=== PATIENT | female | born 1975 | race Caucasian/White ===

== ENCOUNTER 2017-10-21 20:04 | Emergency (ER) | payer OTHER ==
[~2017-10-21] VITALS: Ht 160 cm; Wt 59.9 kg
[~2017-10-21 20:04] MED LIST: ASPIRIN325 MG PO; ATIVAN2 MG/ML IV; DULCOLAX10 MG R; DULCOLAX5 MG PO; FLAGYL I.V.500 MG IV; FLUVOXAMINE100 MG PO; HYDROCODONE BIT1 T11 PO; LUVOX100 MG PO; MOM30 M1 PO; MORPHINE2 MG/1 ML IV; PHENERGAN25 MG/ML IV; PROTONIX IV40 MG IV; RESTORIL15 MG PO; TYLENOL325 M1 PO; TYLENOL650 MG R; VIBRAMYCIN100 MG PO; ZOFRAN2 MG/ML IV
[2017-10-21] MEDS ORDERED: PROZAC10 MG PO (20:13)
[2017-10-21 20:27] LABS: BILIRUBIN NEGATIVE (NEGATIVE); BLOOD 1+ (NEGATIVE); CLARITY SL CLOUDY (CLEAR); COLOR YELLOW (YELLOW); GLUCOSE NEGATIVE (NEGATIVE); KETONE NEGATIVE (NEGATIVE); LEUKO ESTERASE 2+ (NEGATIVE); NITRITE NEGATIVE (NEGATIVE); SPECIFIC GRAVITY <= 1.005 (1.005-1.030); UROBILINOGEN 0.2 E.U./dl (0.2-1.0)
[2017-10-21 20:36] LABS: BACTERIA TRACE; EPITHELIAL CELLS 0-2; WBC 41-50 wbc/hpf (0-5)
[2017-10-22] MEDS ORDERED: PROZAC20 MG PO (10:07)
== END 2017-10-21 20:58 | disposition home or self-care (01) ==
LOC: ED 20:04
PROVIDERS: Student in an Organized Health Care Education/Training Program
DX: N39.0 Urinary tract infection, site not specified (principal); Z79.82 Long term (current) use of aspirin

== ENCOUNTER → 2017-10-22 | Day surgery (SDC) | payer OTHER ==
[~2017-10-22] VITALS: Ht 160 cm; Wt 59.9 kg
[~2017-10-22] MED LIST changes: +PROZAC10 MG PO; +PROZAC20 MG PO
--- NOTE | ~2017-10-22 | PROC NOTE ---
[place], [place] PROCEDURE NOTE NAME: TREY CARRINGTON UNIT #: [id number] ROOM: DOCTOR: JORGE PETERSON MD BIRTHDATE: [birth year] DOS: 10/22/2017 PREOPERATIVE DIAGNOSES: History of Samson syndrome, sigmoid cancer, status post sigmoid resection. POSTOPERATIVE DIAGNOSIS: Normal colon. PROCEDURE: Colonoscopy. ENDOSCOPIST: Jorge Peterson MD SQL SSRS SSIS DEVELOPER: LUISA. ANESTHESIA: MAC. 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 The procedure and its complications were explained to the patient in detail. Complications that were discussed included but were not limited to, bleeding, colon perforation, and missed lesions. She agreed to proceed. DESCRIPTION OF PROCEDURE: After identifying the patient, the patient was brought to the endoscopy suite and placed in the left lateral position. After IV sedation was administered, a timeout procedure was called and a digital rectal exam was performed. This was within normal limits. An adult colonoscope was now introduced into the anal canal and advanced sequentially into the rectum and where the anastomosis from previous sigmoid resection was identified. This was within normal limits. The scope was then advanced sequentially into the descending colon, transverse colon and ascending colon up to the cecum. Upon reaching the cecum, the scope was withdrawn. Total withdrawal time was approximately 5 minutes. There were no obvious lesions seen in the colon in its entirety. These findings were confirmed upon withdrawal. The patient was then taken to the recovery room in stable fashion. Dr. Jorge Peterson, the attending surgeon, was present throughout the operating case. Based on these findings, the patient is recommended to have another colonoscopy as a screening tool in the next 3-5 years or sooner if she develops any new symptoms. These findings will be discussed with the patient in the postoperative recovery room. [place], [place] PROCEDURE NOTE NAME: ANTONIO CARRINGTONA UNIT #: [id number] ROOM: DOCTOR: JORGE PETERSON MD BIRTHDATE: [birth year] Jorge Peterson MD CM:PROCNOTE:PROCEDURE NOTE [id number] JORGE PETERSON MD
[2017-10-22 10:00] VITALS: BP 102/50
[2017-10-22 11:32] VITALS: BP 75/31
[2017-10-22 11:45] VITALS: BP 90/54
[2017-10-22 12:00] VITALS: BP 91/53
== END | disposition home or self-care (01) ==
LOC: SDC 10-18 08:00
DX: Z08 Encounter for follow-up examination after completed treatment for malignant neoplasm (principal); Z85.038 Personal history of other malignant neoplasm of large intestine; Z84.81 Family history of carrier of genetic disease; F32.9 Major depressive disorder, single episode, unspecified; Z98.0 Intestinal bypass and anastomosis status; Z90.710 Acquired absence of both cervix and uterus; Z98.890 Other specified postprocedural states; Z79.82 Long term (current) use of aspirin; Z80.0 Family history of malignant neoplasm of digestive organs

== ENCOUNTER → 2018-05-02 | Outpatient (CLI) | payer OTHER ==
[2018-05-02 09:29] LABS: BASO % 0.9 % (0.0-1.0); EOS # 0.2 10*3/uL (0.0-0.4); EOS % 4.2 % (1.0-4.0); HEMATOCRIT 42.3 % (37.0-47.0); LYMPH # 1.3 10*3/uL (1.3-4.4); LYMPH % 28.1 % (27.0-41.0); MEAN CELL VOLUME 88.5 fl (81.0-99.0); MEAN CORPUSCULAR HGB 29.3 pg (27.0-31.0); MEAN CORPUSCULAR HGB CONC 33.1 g/dl (33.0-37.0); MEAN PLATELET VOLUME 10.2 fl (9.6-12.3); MONO # 0.4 10*3/uL (0.1-1.0); MONO % 9.1 % (3.0-9.0); NEUT # 2.6 10*3/uL (2.3-7.9); NEUT % 57.5 % (47.0-73.0); PLATELET COUNT AUTOMATED 183 10*3/uL (130-400); RED BLOOD COUNT 4.78 10*6/uL (4.10-5.10); RED CELL DISTRI WIDTH 12.5 % (0-14.5); WHITE BLOOD COUNT 4.5 10*3/uL (4.8-10.8)
[2018-05-02 10:01] LABS: ALBUMIN 3.9 gm/dl (3.1-4.5); ALKALINE PHOSPHATASE 63 U/L (45-117); BUN 25 mg/dl (7-24); CHLORIDE 104 mmol/L (98-107); CHOLESTEROL 237 mg/dL (<200); CREATININE 1.01 mg/dL (0.55-1.02); HDL CHOLESTEROL 63 mg/dl (40-60); LDL CHOLESTEROL 153 mg/dL (9-159); POTASSIUM 4.3 mmol/L (3.5-5.1); SGOT/AST 22 IU/L (3-35); SGPT/ALT 31 U/L (12-78); SODIUM 140 mmol/L (136-145); TRIGLYCERIDES 106 mg/dl (<150); VLDL CHOLESTEROL 21 mg/dL (6-40)
== END | disposition home or self-care (01) ==
LOC: LAB 09:01 → MAMMO 10:40
PROVIDERS: Family Medicine
DX: Z12.31 Encounter for screening mammogram for malignant neoplasm of breast (principal); Z13.220 Encounter for screening for lipoid disorders; R53.83 Other fatigue; E55.9 Vitamin D deficiency, unspecified; Z15.09 Genetic susceptibility to other malignant neoplasm

== ENCOUNTER → 2018-10-03 | Outpatient (CLI) | payer OTHER | END | disposition home or self-care (01) | LOC: RESCLI 13:39 | DX: J01.90 Acute sinusitis, unspecified (principal); B96.89 Other specified bacterial agents as the cause of diseases classified elsewhere; Z79.899 Other long term (current) drug therapy; Z88.8 Allergy status to other drugs, medicaments and biological substances ==

== ENCOUNTER → 2018-11-26 | Outpatient (CLI) | payer OTHER | END | disposition home or self-care (01) | LOC: RESCLI 14:05 | DX: J40 Bronchitis, not specified as acute or chronic (principal); Z79.899 Other long term (current) drug therapy; Z90.710 Acquired absence of both cervix and uterus ==

== ENCOUNTER → 2019-04-24 | Outpatient (CLI) | payer SELFPAY | END | disposition home or self-care (01) | LOC: RESCLI 13:01 | DX: F41.9 Anxiety disorder, unspecified (principal); W57.XXXA Bitten or stung by nonvenomous insect and other nonvenomous arthropods, initial encounter; Y93.89 Activity, other specified; Y92.89 Other specified places as the place of occurrence of the external cause; Y99.8 Other external cause status ==

== ENCOUNTER → 2020-01-21 | Outpatient (CLI) | payer SELFPAY | END | disposition home or self-care (01) | LOC: RESCLI 11:43 | DX: F41.9 Anxiety disorder, unspecified (principal); A69.20 Lyme disease, unspecified; F42.9 Obsessive-compulsive disorder, unspecified; Z85.038 Personal history of other malignant neoplasm of large intestine; Z90.49 Acquired absence of other specified parts of digestive tract; Z90.710 Acquired absence of both cervix and uterus; Z90.722 Acquired absence of ovaries, bilateral; Z98.890 Other specified postprocedural states; Z79.899 Other long term (current) drug therapy ==

== ENCOUNTER → 2020-08-12 | Outpatient (CLI) | payer OTHER | END | disposition home or self-care (01) | LOC: MAMMO 10:53 | PROVIDERS: ATTEND Family Medicine | DX: Z12.31 Encounter for screening mammogram for malignant neoplasm of breast (principal); N64.89 Other specified disorders of breast ==

== ENCOUNTER → 2020-10-29 | Outpatient (CLI) | payer OTHER ==
[2020-10-29 15:51] LABS: BILIRUBIN 1+ (Negative); BLOOD Trace-Intact (Negative); CLARITY Cloudy (Clear); COLOR Dark Yellow (Yellow); GLUCOSE Negative (Negative); KETONE Negative (Negative); LEUKO ESTERASE 3+ (Negative); NITRITE Positive (Negative)
[2020-10-29 16:02] LABS: BACTERIA 4+; WBC TNTC wbc/hpf (0-5)
== END | disposition home or self-care (01) ==
LOC: LAB 15:31
PROVIDERS: ATTEND Physical Therapist
DX: R35.0 Frequency of micturition (principal)

== ENCOUNTER → 2021-03-10 | Day surgery (SDC) | payer OTHER ==
[~2021-03-10] VITALS: Ht 160 cm; Wt 61.7 kg
[~2021-03-10] MED LIST changes: +OSTERA TABLET1 EACH PO
[2021-03-10 08:24] VITALS: BP 104/38
[2021-03-10 09:35] VITALS: BP 103/63
[2021-03-10 09:50] VITALS: BP 104/69
[2021-03-10 09:56] VITALS: BP 106/64
== END | disposition home or self-care (01) ==
LOC: SDC 03-07 08:00
PROVIDERS: ATTEND Surgery
DX: Z12.11 Encounter for screening for malignant neoplasm of colon (principal); K29.50 Unspecified chronic gastritis without bleeding; K21.9 Gastro-esophageal reflux disease without esophagitis; F42.9 Obsessive-compulsive disorder, unspecified; Z85.038 Personal history of other malignant neoplasm of large intestine; Z90.49 Acquired absence of other specified parts of digestive tract; Z79.82 Long term (current) use of aspirin; Z79.899 Other long term (current) drug therapy; Z20.822 Contact with and (suspected) exposure to COVID-19

== ENCOUNTER → 2022-09-18 | Day surgery (SDC) | payer OTHER ==
[~2022-09-18] VITALS: Ht 160 cm; Wt 61.7 kg
[~2022-09-18] MED LIST changes: +PROTONIX40 MG PO
[2022-09-18 07:15] VITALS: BP 105/65
[2022-09-18 08:10] VITALS: BP 110/66
[2022-09-18 08:25] VITALS: BP 118/82
[2022-09-18 08:40] VITALS: BP 120/84
== END | disposition home or self-care (01) ==
LOC: SDC 09-14 10:15
PROVIDERS: ATTEND Surgery
DX: Z08 Encounter for follow-up examination after completed treatment for malignant neoplasm (principal); K29.50 Unspecified chronic gastritis without bleeding; K21.9 Gastro-esophageal reflux disease without esophagitis; F42.9 Obsessive-compulsive disorder, unspecified; Z85.038 Personal history of other malignant neoplasm of large intestine; Z98.0 Intestinal bypass and anastomosis status; Z90.710 Acquired absence of both cervix and uterus; Z90.49 Acquired absence of other specified parts of digestive tract; Z79.899 Other long term (current) drug therapy